=== PATIENT | male | born 1950 | race African-American/Black ===

== ENCOUNTER 2018-09-30 17:05 | Inpatient (IN) | payer MEDICARE, OTHER ==
[~2018-09-30] VITALS: Ht 170.2 cm; Wt 68.0 kg
--- NOTE | 2018-09-30 17:10 | NUR ---
PT BIB PRIVATE AMBULANCE, ON 5150 HOLD FOR DTS. PT IS AGITATED, VERBALLY ABUSIVE TO ED STAFF. PLACE ON SI PRECAUTION AND ONE ON ONE SITTER. AWAITING MD CARRERO.
[2018-09-30] MEDS ORDERED: BUSP5TAB3 PO (17:18)
[2018-09-30] MEDS ORDERED: ACET-868 PO (17:18)
[2018-09-30] MEDS ORDERED: NA P133E RC (17:18)
[2018-09-30] MEDS ORDERED: DOCU-141 PO (17:18)
[2018-09-30] MEDS ORDERED: BISA10SU11 RC (17:18)
[2018-09-30] MEDS ORDERED: LAMO100T2 PO (17:18)
[2018-09-30] MEDS ORDERED: VITA1TAB56 PO (17:18)
[2018-09-30] MEDS ORDERED: VENL75CA56 PO (17:18)
[2018-09-30] MEDS ORDERED: ACET-2605 PO (17:18)
[2018-09-30] MEDS ORDERED: SENN-168 PO (17:18)
[2018-09-30] MEDS ORDERED: SERT25TA PO (17:18)
--- NOTE | 2018-09-30 17:20 | NUR ---
PT UNABLE TO PROVIDE URINE SAMPLE AT THIS TIME.
--- NOTE | 2018-09-30 17:22 | NUR ---
DR HEDRICK AT BEDSIDE FOR EVAL.
--- NOTE | 2018-09-30 17:24 | NUR ---
PELLETISING EXTRUDER OPERATOR AT BEDSIDE FOR BLOOD DRAW.
[2018-09-30 17:36] LABS: BASOPHILS % (AUTO) 0.6 % (0.0-2.0); EOSINOPHILS % (AUTO) 7.3 % (0.0-6.0); HEMATOCRIT 48 % (39-51); HEMOGLOBIN 16.4 g/dL (13.5-17.5); LYMPHOCYTES # (AUTO) 1.9 /CMM (0.8-4.8); LYMPHOCYTES % (AUTO) 37.5 % (20.0-44.0); MEAN CORPUSCULAR HGB CONC 34 g/dl (31.0-36.0); MEAN CORPUSCULAR VOLUME 96 fL (80-96); MONOCYTES # (AUTO) 0.5 /CMM (0.1-1.30); MONOCYTES % (AUTO) 9.2 % (2.0-12.0); NEUTROPHILS # (AUTO) 2.3 /CMM (1.8-8.9); NEUTROPHILS % (AUTO) 45.4 % (43.0-81.0); PLATELET COUNT (AUTO) 302 /CMM (150-450); RED BLOOD CELL COUNT(AUTO) 4.96 MIL/uL (4.5-6.0)
[2018-09-30 17:56] LABS: ALANINE AMINOTRANSFERASE 24 U/L (12-78); ALBUMIN 4.4 g/dL (3.4-5.0); ALKALINE PHOSPHATASE 74 U/L (46-116); ASPARTATE AMINOTRANSFERASE 22 U/L (15-37); BILIRUBIN,DIRECT 0.1 mg/dL (0.0-0.2); BILIRUBIN,TOTAL 0.5 mg/dL (0.2-1.0); CALCIUM, SERUM 9.4 mg/dL (8.5-10.1); CHLORIDE 100 mmol/L (98-107); CREATININE 1.4 mg/dL (0.6-1.3); GLUCOSE 81 mg/dL (74-106); POTASSIUM 3.9 mmol/L (3.5-5.1); SODIUM SERUM 139 mmol/L (136-145); TOTAL PROTEIN, SERUM 7.8 g/dL (6.4-8.2)
[2018-09-30 18:08] LABS: CARBON DIOXIDE 25 mmol/L (21-32); UREA NITROGEN, BLOOD 17 mg/dL (7-18)
[2018-09-30 18:10] LABS: ACETAMINOPHEN < 10 ug/ml (10-30); ALCOHOL, BLOOD < 3 mg/dL (0-0); SALICYLATE 1.4 mg/dL (2.8-20.0)
--- NOTE | 2018-09-30 18:10 | NUR ---
STILL REFUSING TO PROVIDE URINE SAMPLE. AGITATED. VERBALLY ABUSIVE. ERMD AWARE.
--- NOTE | 2018-09-30 19:35 | NUR ---
BED ASSIGNMENT 215-A
--- NOTE | 2018-09-30 19:47 | NUR ---
GAVE REPORT TO HAN BASURTO FOR ROCAEL
[2018-09-30] MEDS ORDERED: OLANZAPINE 10 MG VIAL IM ONE ×2 (19:59→20:00)
--- NOTE | 2018-09-30 20:08 | NUR ---
PT TRANSFERRED TO [facility] VIA [facility]. SITTER AT BEDSIDE
[2018-09-30 20:15] VITALS: BP 131/81
[2018-09-30] MEDS ORDERED: NA PHOS,M-B/NA PHOS,DI-BA 1 EA ENEMA RC PRN (21:00)
[2018-09-30] MEDS ORDERED: TEMAZEPAM 7.5 MG CAPSULE PO PRN (21:00)
[2018-09-30] MEDS ORDERED: BISACODYL SUPP (10 MG) 10 MG/SUPP.RECT SUPP.RECT RC PRN (21:00)
[2018-09-30] MEDS ORDERED: ACETAMINOPHEN 325 MG TABLET PO PRN (21:00)
[2018-09-30] MEDS ORDERED: BLOOD SUGAR DIAGNOSTIC 1 EACH STRIP IN ONE (21:00)
[2018-09-30] MEDS ORDERED: MAG HYDROX/AL HYDROX/SIMETH 30 ML UDC PO PRN (21:00)
[2018-09-30] MEDS ORDERED: MAGNESIUM HYDROXIDE 30 ML UDC PO PRN (21:00)
--- NOTE | 2018-09-30 21:00 | NUR ---
GPS RN NOTES : PT. REFUSED INTIALLY BLOOD SUGAR CHECK, PER PT. I AM NOT DIABETIC , PT. REFUSED TO SKIN ASSESSMENT AND PICTURES TAKEN , ENCOURAGED EXPLAINED RISKS AND BENEFITS ,PER PT. MY SKIN IS INTACT, PT. REFUSED TO SIGNS ADMISSION PAPERS DUE TO MENTAL DISORDERS, PT. BEHAVIOR VERY UNCOOPERATIVE .
[2018-09-30] MEDS: SENNOSIDES 8.6 MG TABLET PO SCH (21:30)
[2018-09-30 23:18] VITALS: BP 125/70
--- NOTE | 2018-09-30 23:40 | NUR ---
ADMISSION NOTES: ADMITTED THIS 68Y/O MALE PATIENT ADMIT FROM [facility] ER/INTIALLY FROM [facility] , PT IS ON 5150 HOLD DANGER TO SELF, AND ISOLATIVE HIM SELF FROM OTHERS AND VERBALIZEING SI , UPON FACE TO FACE ASSESSMENT PATIENT IS A&O X ,2 DISORGNIZED, DEPESSED, ANXIOUS, FEELING SI, BUT NO PLAN AT THIS TIME , UNCOOPERTIVE ,EASILY GETS AGITATED, PT. IS POOR HISTORIAN, POOR INSIGHT ,POOR JUDGEMENT , POOR HYGINE , PT. REFUSED TO TAKE SHOWER AT THIS TIME , AND PT. REFUSED TO SIGN ADMISSION PAPERS ,PT. REFUSED TO SKIN ASSESSMENT , PER PT. MY SKIN IS INTACT, AND REFUSED PICTURES, PT. V/S MD STEPHANIE AWARE AND NOTIFIED OF THE ADMISSION, BELONGINGS CONTRABAND WERE DONE , NURSING ASSESSMENT DONE ,PT. RIGHTS DISCUSS BY BULK MATERIALS HANDLING PLANT OPERATOR , PROVIDE THE PT. WITH HANDBOOK, AND MEDICATIONS GUIDE, ENVIRONMENTAL SAFETY CHECK DONE, ENCOURAGED PT. VERBALIZED ANY FEELING CONCERN TO STAFF, ORIENT TO UNIT POLICY, NO ACUTE DISTRESS NOTED,VITAL SIGNS WNL ,DENIES ANY PAIN AT THIS TIME ,WILL CONTINUE TO MONITOR FOR Q15 SAFETY AND BEHAVIOR.
[2018-10-01 08:00] VITALS: BP 100/55
[2018-10-01 08:11] LABS: APPEARANCE,URINE SL CLOUDY (CLEAR); BILIRUBIN,URINE NEGATIVE (NEGATIVE); BLOOD, URINE NEGATIVE Ery/uL (NEGATIVE); COLOR,URINE YELLOW (YELLOW); KETONES,URINE TRACE (NEGATIVE); LEUKOCYTE ESTERASE ,URINE NEGATIVE (NEGATIVE); NITRITE, URINE NEGATIVE (NEGATIVE); PH,URINE 6.5 (5.0-8.0); PROTEIN,URINE NEGATIVE (NEGATIVE); UGLUCOSE NEGATIVE (NEGATIVE); UROBILINOGEN,URINE 0.2 EU/dL (0.2)
[2018-10-01 08:28] LABS: ALBUMIN 3.6 g/dL (3.4-5.0); BILIRUBIN,TOTAL 0.7 mg/dL (0.2-1.0); CALCIUM, SERUM 8.8 mg/dL (8.5-10.1); CREATININE 1.3 mg/dL (0.6-1.3); POTASSIUM 4.2 mmol/L (3.5-5.1); THYROID STIMULATING HORMONE 2.691 uIU/mL (0.358-3.74); TOTAL PROTEIN, SERUM 7.3 g/dL (6.4-8.2)
[2018-10-01 08:53] LABS: BACTERIA,URINE None seen /HPF (None Seen); RBC,URINE 0-2 /HPF (0-2); WBC,URINE 0-2 /HPF (0-3)
[2018-10-01 08:54] LABS: SQUAMOUS EPITHELIAL CELL,UR Rare /HPF (None Seen)
[2018-10-01] MEDS: VITAMIN B COMP W-C 1 TAB TABLET PO SCH (09:59)
[2018-10-01] MEDS: DOCUSATE SODIUM 100 MG CAPSULE PO SCH ×2 (09:59→17:25)
[2018-10-01] MEDS: SERTRALINE HCL 50 MG TABLET PO SCH (13:32)
[2018-10-01] MEDS: busPIRone 5 MG TABLET PO SCH ×2 (13:32→17:25)
[2018-10-01] MEDS: LamoTRIgine 100 MG TABLET PO SCH ×2 (13:32→17:25)
[2018-10-01] MEDS: VENLAFAXINE XR 75 MG CAP.SR.24H PO SCH (13:32)
[2018-10-01 16:00] VITALS: BP 100/63
--- NOTE | 2018-10-01 18:01 | NUR ---
RN GPS NOTES PT IN BED, RESTING, ALERT AND VERBALLY RESPONSIVE, DOES NOT LIKE TO INTERACT, COMPLIANT WITH MEDICATIONS, DENIES PAIN OR ANY DISCOMFORT, SEEN BY PHYSICAL THERAPIST, REFUSED PT EVAL, STATED THAT HE IS NOT FEELING WELL, MAINTAINED A QUIET ENVIRONMENT, NEEDS ATTENDED.
[2018-10-01 20:00] VITALS: BP 105/69
[2018-10-01] MEDS: SENNOSIDES 8.6 MG TABLET PO SCH (21:12)
[2018-10-02 08:00] VITALS: BP 103/68
[2018-10-02] MEDS: DOCUSATE SODIUM 100 MG CAPSULE PO SCH ×2 (09:07→16:45)
[2018-10-02] MEDS: SERTRALINE HCL 50 MG TABLET PO SCH (09:07)
[2018-10-02] MEDS: VITAMIN B COMP W-C 1 TAB TABLET PO SCH (09:08)
[2018-10-02] MEDS: LamoTRIgine 100 MG TABLET PO SCH ×2 (09:08→16:45)
[2018-10-02] MEDS: busPIRone 5 MG TABLET PO SCH ×3 (09:08→16:45)
[2018-10-02] MEDS: VENLAFAXINE XR 75 MG CAP.SR.24H PO SCH (09:08)
[2018-10-02] MEDS: clonazePAM 0.5 MG TABLET PO PRN ×2 (09:12→20:55)
--- NOTE | 2018-10-02 09:12 | NUR ---
RN NOTES ADMINISTERED KLONOPIN 0.5 MG PO PRN FOR ANXIETY PER PATIENT REQUEST, V/S TAKEN BP-103/68, P-62, CONTINUED MONITORING.
[2018-10-02] MEDS: OXCARBAZEPINE 150 MG TABLET PO SCH ×2 (11:11→16:45)
--- NOTE | 2018-10-02 13:09 | NUR ---
RN NOTES ADMINISTERED MILK OF MAGNESIA FOR CONSTIPATION PER PATIENT REQUEST, CONTINUED MONITORING.
--- NOTE | 2018-10-02 14:03 | NUR ---
SW contacted Adalberto, student admissions clerk [facility] Address: [address] [place] [address] who stated pt is able to return once stable for discharge.
--- NOTE | 2018-10-02 15:00 | NUR ---
GROUP NOTE: SW prompted pt to participate in group session on this present day discussing "current issues you are having while being on a hold." Pt was uncooperative in group and verbally abusive with SW, pt was disrupting the group setting and asked to leave the group.
[2018-10-02 16:00] VITALS: BP 115/71
[2018-10-02 19:53] VITALS: BP 109/74
[2018-10-02] MEDS: SENNOSIDES 8.6 MG TABLET PO SCH (21:04)
[2018-10-03] MEDS: DOCUSATE SODIUM 100 MG CAPSULE PO SCH ×2 (08:16→17:45)
[2018-10-03] MEDS: SERTRALINE HCL 50 MG TABLET PO SCH (08:17)
[2018-10-03] MEDS: OXCARBAZEPINE 150 MG TABLET PO SCH ×2 (08:17→17:45)
[2018-10-03] MEDS: busPIRone 5 MG TABLET PO SCH ×3 (08:17→17:45)
[2018-10-03] MEDS: LamoTRIgine 100 MG TABLET PO SCH ×2 (08:18→17:45)
[2018-10-03] MEDS: VENLAFAXINE XR 75 MG CAP.SR.24H PO SCH (08:18)
[2018-10-03] MEDS: VITAMIN B COMP W-C 1 TAB TABLET PO SCH (08:18)
[2018-10-03] MEDS: clonazePAM 0.5 MG TABLET PO PRN ×3 (08:27→20:52)
--- NOTE | 2018-10-03 08:57 | NUR ---
GIVEN CLONOPIN FOR SEVERE AGITATION.
[2018-10-03 09:21] VITALS: BP 112/77
--- NOTE | 2018-10-03 09:30 | NUR ---
INITIAL DISCHARGE NOTE: Patient will return to [facility] Address: [address] [place] [address] . BUDDY spoke with KARIME, learning coordinator who stated pt is able to return once stable for discharge. BUDDY will help form a safe and proper discharge in collaboration with .
[2018-10-03 16:00] VITALS: BP 149/92
--- NOTE | 2018-10-03 16:17 | NUR ---
Group Note: SW prompted pt to participate in group session for the topic of discharge planning. Pt is inappropriate for group therapy due to his aggressive behavior and hostility. Pt creates an unsafe environment.
--- NOTE | 2018-10-03 16:20 | NUR ---
MEDICATED AGAIN WITH CLONOPIN 0.5 MG PO.GETTING IN TO ARGUMENTS WITH STAFF AND OTHER PT'S.
--- NOTE | 2018-10-03 18:14 | NUR ---
PACING THE HALLS STILL A LITTLE AGITATED.
[2018-10-03 20:40] VITALS: BP 123/78
[2018-10-03] MEDS: SENNOSIDES 8.6 MG TABLET PO SCH (21:14)
[2018-10-04 08:00] VITALS: BP 114/71
[2018-10-04] MEDS: clonazePAM 0.5 MG TABLET PO PRN (08:54)
--- NOTE | 2018-10-04 08:54 | NUR ---
MEDICATED FOR AGITATION WITH CLONOPIN.
[2018-10-04] MEDS: LamoTRIgine 100 MG TABLET PO SCH ×2 (09:27→18:30)
[2018-10-04] MEDS: OXCARBAZEPINE 150 MG TABLET PO SCH ×2 (09:27→18:30)
[2018-10-04] MEDS: VITAMIN B COMP W-C 1 TAB TABLET PO SCH (09:27)
[2018-10-04] MEDS: DOCUSATE SODIUM 100 MG CAPSULE PO SCH ×2 (09:28→18:30)
[2018-10-04] MEDS: busPIRone 5 MG TABLET PO SCH ×3 (09:28→18:30)
[2018-10-04] MEDS: SERTRALINE HCL 50 MG TABLET PO SCH (09:28)
[2018-10-04] MEDS: VENLAFAXINE XR 75 MG CAP.SR.24H PO SCH (09:30)
--- NOTE | 2018-10-04 11:10 | NUR ---
BRISKLY AMBULATING AROUND UNIT,PACING,TALKING OUT LOUD.PER CONSTRUCTION MATERIALS TESTER BRITANY RENDON-PT."LUNGED OUT AT HIM''.DR. LEMUS PSYCHIATRIST CALLED AND INJECTION ORDERED.
[2018-10-04] MEDS ORDERED: HALOPERIDOL LACTATE INJ 5 MG/ML VIAL IM ONE (12:00)
[2018-10-04] MEDS ORDERED: LORAZEPAM INJ 2 MG/ML VIAL IV PRN (12:00)
[2018-10-04] MEDS ORDERED: diphenhydrAMINE HCL 50 MG/ML VIAL IV PRN (12:00)
--- NOTE | 2018-10-04 12:00 | NUR ---
INJECTION GIVEN ORDERED.PT. INITIALLY STILL UP WALKING ABOUT,CAUTIONED PT. THAT HE MAY GET SLEEPY.
[2018-10-04 12:30] VITALS: BP 124/74
--- NOTE | 2018-10-04 12:30 | NUR ---
SEE FREQ. VS IN COMPUTER.
[2018-10-04 13:00] VITALS: BP 116/81
[2018-10-04 13:30] VITALS: BP 113/70
--- NOTE | 2018-10-04 15:00 | NUR ---
WITH PT'S PERMISSION DR. LEMUS CONTACTED PT'S SISTER JOSUE.
[2018-10-04 16:00] VITALS: BP 100/63
--- NOTE | 2018-10-04 16:09 | NUR ---
GROUP NOTE: Pt unable to participate in group on this present day due to receiving an IM injection due to his aggressive behavior and manic mood.
--- NOTE | 2018-10-04 18:30 | NUR ---
REFUSED [facility]. MEDS-STATES HE WANTS TO BE LEFT ALONE.
[2018-10-04 20:20] VITALS: BP 101/58
[2018-10-04] MEDS: SENNOSIDES 8.6 MG TABLET PO SCH (22:00)
--- NOTE | 2018-10-04 22:39 | NUR ---
GPS RN NOTE: PATIENT [place] SCHEDULED MED NOT GIVEN, PATIENT IS ASLEEP D/T IM SHOTS RECEIVED DURING THE DAY. V/S 101/58 P=80 R=18 T=97.7. NO SOB, NO ACUTE DISTRESS, BREATHING EVEN AND UNLABORED, WILL COTNINUE TO MONITOR Q15 MINS FOR SAFETY
[2018-10-05 08:00] VITALS: BP 109/75
[2018-10-05] MEDS: busPIRone 5 MG TABLET PO SCH ×3 (08:54→17:00)
[2018-10-05] MEDS: DOCUSATE SODIUM 100 MG CAPSULE PO SCH ×3 (08:54→18:25)
[2018-10-05] MEDS: LamoTRIgine 100 MG TABLET PO SCH ×3 (08:55→18:25)
[2018-10-05] MEDS: OXCARBAZEPINE 150 MG TABLET PO SCH ×3 (08:55→18:26)
[2018-10-05] MEDS: VENLAFAXINE XR 75 MG CAP.SR.24H PO SCH (08:55)
[2018-10-05] MEDS: SERTRALINE HCL 50 MG TABLET PO SCH (08:55)
[2018-10-05] MEDS: VITAMIN B COMP W-C 1 TAB TABLET PO SCH (08:55)
--- NOTE | 2018-10-05 15:43 | NUR ---
GROUP NOTE: Pt has been asleep all day in his room refusing medication and refusing to participate in any activity. Pt has not been seen in the unit as he has been withdrawn and isolative all day. SW attempted to wake pt but was not easily aroused.
[2018-10-05 16:00] VITALS: BP 117/65
[2018-10-05] MEDS: clonazePAM 0.5 MG TABLET PO PRN (18:25)
--- NOTE | 2018-10-05 18:31 | NUR ---
RN NOTES Patient refused morning and afternoon medications. Patient received 1700 medications. Charge nurse aware.
[2018-10-05 20:00] VITALS: BP 116/77
[2018-10-05] MEDS: SENNOSIDES 8.6 MG TABLET PO SCH (22:08)
[2018-10-06 08:00] VITALS: BP_SYST 109; BP_SYST 143; BP_DIAS 69; BP_DIAS 91
[2018-10-06] MEDS: DOCUSATE SODIUM 100 MG CAPSULE PO SCH ×2 (08:15→16:17)
[2018-10-06] MEDS: VENLAFAXINE XR 75 MG CAP.SR.24H PO SCH (08:15)
[2018-10-06] MEDS: busPIRone 5 MG TABLET PO SCH ×3 (08:15→16:17)
[2018-10-06] MEDS: LamoTRIgine 100 MG TABLET PO SCH ×2 (08:16→16:17)
[2018-10-06] MEDS: VITAMIN B COMP W-C 1 TAB TABLET PO SCH (08:16)
[2018-10-06] MEDS: SERTRALINE HCL 50 MG TABLET PO SCH (08:16)
[2018-10-06] MEDS: OXCARBAZEPINE 150 MG TABLET PO SCH ×2 (08:16→16:17)
[2018-10-06] MEDS: clonazePAM 0.5 MG TABLET PO PRN ×2 (11:43→18:44)
--- NOTE | 2018-10-06 14:27 | NUR ---
GROUP NOTE: Pt was uncooperative and refusing to have a conversation with SW, pt was verbally abusive and threatening SW stating, "people I know will hurt you just watch" Pt then kept following SW down the unit and not leaving her alone. Pt continues to be manic and hyperverbal with unpredictable labile mood.
[2018-10-06 20:00] VITALS: BP 130/78
[2018-10-06] MEDS: SENNOSIDES 8.6 MG TABLET PO SCH (21:42)
[2018-10-07 08:00] VITALS: BP 119/77
[2018-10-07] MEDS: VENLAFAXINE XR 75 MG CAP.SR.24H PO SCH (08:47)
[2018-10-07] MEDS: OXCARBAZEPINE 150 MG TABLET PO SCH ×2 (08:47→16:44)
[2018-10-07] MEDS: LamoTRIgine 100 MG TABLET PO SCH ×2 (08:47→16:44)
[2018-10-07] MEDS: busPIRone 5 MG TABLET PO SCH ×3 (08:47→16:44)
[2018-10-07] MEDS: DOCUSATE SODIUM 100 MG CAPSULE PO SCH ×2 (08:47→16:44)
[2018-10-07] MEDS: VITAMIN B COMP W-C 1 TAB TABLET PO SCH (08:47)
[2018-10-07] MEDS: SERTRALINE HCL 50 MG TABLET PO SCH (08:47)
[2018-10-07] MEDS: clonazePAM 0.5 MG TABLET PO PRN ×2 (10:39→20:41)
[2018-10-07 16:03] VITALS: BP 132/77
[2018-10-07 20:00] VITALS: BP 154/97
[2018-10-07] MEDS: SENNOSIDES 8.6 MG TABLET PO SCH (21:33)
[2018-10-08 08:00] VITALS: BP 113/69
[2018-10-08] MEDS: busPIRone 5 MG TABLET PO SCH ×3 (08:14→16:54)
[2018-10-08] MEDS: LamoTRIgine 100 MG TABLET PO SCH ×2 (08:14→16:53)
[2018-10-08] MEDS: VITAMIN B COMP W-C 1 TAB TABLET PO SCH (08:14)
[2018-10-08] MEDS: SERTRALINE HCL 50 MG TABLET PO SCH (08:14)
[2018-10-08] MEDS: DOCUSATE SODIUM 100 MG CAPSULE PO SCH ×2 (08:14→16:53)
[2018-10-08] MEDS: VENLAFAXINE XR 75 MG CAP.SR.24H PO SCH (08:14)
[2018-10-08] MEDS: OXCARBAZEPINE 150 MG TABLET PO SCH ×2 (08:14→16:53)
[2018-10-08] MEDS: clonazePAM 0.5 MG TABLET PO PRN ×2 (12:08→21:00)
--- NOTE | 2018-10-08 12:13 | NUR ---
RN NOTES PATIENT NOTED ANXIOUS AND RESTLESS. PRN CLONAZEPAM O.5MG P.O. GIVEN AT 1208. WILL CONTINUE TO MONITOR.
[2018-10-08 16:00] VITALS: BP 122/75
[2018-10-08 20:07] VITALS: BP 139/87
[2018-10-08] MEDS: SENNOSIDES 8.6 MG TABLET PO SCH (21:01)
[2018-10-09 08:00] VITALS: BP 105/69
[2018-10-09] MEDS: OXCARBAZEPINE 150 MG TABLET PO SCH (09:08)
[2018-10-09] MEDS: SERTRALINE HCL 50 MG TABLET PO SCH (09:08)
[2018-10-09] MEDS: busPIRone 5 MG TABLET PO SCH (09:08)
[2018-10-09] MEDS: LamoTRIgine 100 MG TABLET PO SCH (09:08)
[2018-10-09] MEDS: DOCUSATE SODIUM 100 MG CAPSULE PO SCH (09:08)
[2018-10-09] MEDS: VITAMIN B COMP W-C 1 TAB TABLET PO SCH (09:08)
[2018-10-09] MEDS: VENLAFAXINE XR 75 MG CAP.SR.24H PO SCH (09:08)
--- NOTE | 2018-10-09 09:51 | NUR ---
Pt refused to sign the choice of vendors stating he did not want to sign any paperwork. Pt appeared to be manic and was yelling at charge nurse pt refused to calm down.
--- NOTE | 2018-10-09 09:59 | NUR ---
DISCHARGE NOTE: Pt will be discharged at 11:00am via [facility] to [facility] Address: [address] [place] [address] . Pt has not family to notify. Pts mood appears manic with congruent affect. Pt denied visual/auditory hallucinations and denied suicidal/homicidal ideation. Pt will be under the care of Psychiatrist: Dr. Mcmahon Address: [address] [place] [address] Phone: [phone] and Recreational Therapy Technician: Dr Anglin Address: [address] [address] . The multidisciplinary exit care form was done, printed, signed, and given to the patient.
--- NOTE | 2018-10-09 11:20 | NUR ---
GPS/RN-NOTES PATIENT DISCHARGE TODAY TO [facility] TODAY. DR. LEMUS AND DR. HUYNH AWARE AND AGREES OF PATIENT DISCHARGE WITH ORDERS. REPORT WAS GIVEN TO YAMILET ( AUTOMOBILE SALESMAN). PATIENT DID NOT VERBALIZE SI/HI DENIES VISUAL /AUDITORY HALLUCINATIONS AT THE TIME OF DISCHARGE. PATIENT SIGN ALL DISCHARGE PAPERS. PATIENT STRONGLY REFUSED FULL BODY ASSESSMENT PRIOR TO DISCHARGE . EXPLAINED HOSPITAL POLICIES BUT PATIENT STILL REFUSED.NO FAMILY TO NOTIFY OF THE DISCHARGE. PATIENT LEFT THE UNIT IN STABLE CONDITION,ALERT ORIENTED X3 AMBULATORY WITH STEADY GAIT. BLADE CHANGER BY AMBULANCE VIA GURNEY WITH TWO STAFF ASSIST.LEFT WITH ALL BELONGINGS.
== END 2018-10-09 11:20 | DRG 885 ==
LOC: ER 17:10 → GPS 19:58
PROVIDERS: ADMIT Psychiatry & Neurology Psychiatry; ATTEND Nurse Practitioner Acute Care
DX: F31.64 Bipolar disorder, current episode mixed, severe, with psychotic features (principal); N18.9 Chronic kidney disease, unspecified; R45.851 Suicidal ideations; F29 Unspecified psychosis not due to a substance or known physiological condition; F41.9 Anxiety disorder, unspecified; G62.9 Polyneuropathy, unspecified
CPT/HCPCS: 36415; 80048-TC; 80053-TC; 80061-TC; 80076-TC; 81000-TC; 84443-TC; 85025-TC; 87081-TC; 97116-TC; 97530-TC; G0480; J1200; J1630; J2060; J3490

== ENCOUNTER → 2019-02-20 | Outpatient (CLI) | payer MEDICARE, OTHER ==
[~2019-02-20] MED LIST: ACET-2605 PO; ACET-868 PO; BISA10SU11 RC; BUSP5TAB3 PO; DOCU-141 PO; LAMO100T2 PO; NA P133E RC; SENN-168 PO; SERT25TA PO; VENL75CA56 PO; VITA1TAB56 PO
== END | disposition home or self-care (01) ==
LOC: MSC 13:10
PROVIDERS: ATTEND Anesthesiology
DX: M19.011 Primary osteoarthritis, right shoulder (principal); M54.5 Low back pain; G89.4 Chronic pain syndrome; Z96.652 Presence of left artificial knee joint; Z79.891 Long term (current) use of opiate analgesic; Z79.1 Long term (current) use of non-steroidal anti-inflammatories (NSAID)